=== PATIENT | female | born 1965 | race Caucasian/White ===

== ENCOUNTER 2019-07-26 07:45 | Emergency (ER) | payer BC ==
[2019-07-26 07:57] VITALS: TEMP 98.1
[2019-07-26 08:29] VITALS: RESP 18
--- NOTE | 2019-07-26 08:33 | ED ---
General Adult HPI - General Chief complaint: Nausea/Vomiting/Diarrhea Stated complaint: POSSIBLE FLU Time Seen by Provider: 07/26/19 07:55 Source: patient, RN notes reviewed, old records reviewed Mode of arrival: ambulatory Limitations: no limitations - History of Present Illness Initial comments: This is a 54-year-old female who presents emergency Department stating that last night while at work she started having body aches a dry cough and felt as though she had a fever though she never took her temperature. Patient states she is not short of breath she is not having chest pain. Patient denies any back pain. Patient denies abdominal pain. Patient states she did have one episode of diarrhea. Patient denies any conjunctivitis. Patient denies any vomiting. Patient denies any swelling to her legs or calf tenderness. - Related Data Allergies Allergy/AdvReac Type Severity Reaction Status Date / Time Penicillins Allergy Rash/Hives Verified 07/26/19 07:57 Review of Systems ROS Statement: Those systems with pertinent positive or pertinent negative responses have been documented in the HPI. ROS Other: All systems not noted in ROS Statement are negative. Past Medical History Past Medical History: No Reported History History of Any Multi-Drug Resistant Organisms: None Reported Past Surgical History: No Surgical Hx Reported Past Psychological History: No Psychological Hx Reported Smoking Status: Current every day smoker Past Alcohol Use History: Occasional Past Drug Use History: None Reported General Exam - General Exam Comments Initial Comments: GENERAL: Patient is well-developed and well-nourished. Patient is nontoxic and well- hydrated and is in mild distress. ENT: Neck is soft and supple. No significant lymphadenopathy is noted. Oropharynx is clear. Moist mucous membranes. Neck has full range of motion without eliciting any pain. EYES: The sclera were anicteric and conjunctiva were pink and moist. Extraocular movements were intact and pupils were equal round and reactive to light. Eyelids were unremarkable. PULMONARY: Unlabored respirations. Good breath sounds bilaterally. No audible rales rhonchi or wheezing was noted. CARDIOVASCULAR: There is a regular rate and rhythm without any murmurs gallops or rubs. ABDOMEN: Soft and nontender with normal bowel sounds. SKIN: Skin is clear with no lesions or rashes and otherwise unremarkable. NEUROLOGIC: Patient is alert and oriented x3. Cranial nerves II through XII are grossly intact. Motor and sensory are also intact. Normal speech, volume and content. Symmetrical smile. MUSCULOSKELETAL: Normal extremities with adequate strength and full range of motion. No lower extremity swelling or edema. No calf tenderness. LYMPHATICS: No significant lymphadenopathy is noted PSYCHIATRIC: Normal psychiatric evaluation. Limitations: no limitations Course Vital Signs 07/26/19 07/26/19 07:53 08:26 Temperature 98.1 F Pulse Rate 119 H 89 Respiratory 20 18 Rate Blood Pressure 153/89 140/86 O2 Sat by Pulse 100 97 Oximetry Medical Decision Making - Medical Decision Making Chest x-ray shows no acute abnormality. Disposition Clinical Impression: Upper respiratory infection Disposition: HOME SELF-CARE Instructions (If sedation given, give patient instructions): Upper Respiratory Infection (ED) Additional Instructions: Patient should self quarantined for 2 weeks because of possible COVID infection. Patient should return to the emergency department if symptoms worsen or she has any new symptoms or she short of breath. Is patient prescribed a controlled substance at d/c from ED?: No Referrals: Murphy Starks MD [Primary Care Provider] - 1-2 days Time of Disposition: 08:44
--- NOTE | 2019-07-26 08:35 | XR ---
EXAMINATION TYPE: XR chest 2V DATE OF EXAM: 07/26/2019 HISTORY: Difficulty breathing . REFERENCE: NONE. FINDINGS: The lungs are clear. Pleural space are clear. The heart is not enlarged. IMPRESSION: NORMAL CHEST.
[2019-07-26 08:54] VITALS: BP 129/62; PULSE 72
== END 2019-07-26 08:53 | disposition home or self-care (01) ==
LOC: EC 07:45
DX: J06.9 Acute upper respiratory infection, unspecified (principal); R19.7 Diarrhea, unspecified; F17.200 Nicotine dependence, unspecified, uncomplicated; Z88.0 Allergy status to penicillin
CPT/HCPCS: 71046; 99284

== ENCOUNTER 2019-08-18 17:07 | Emergency (ER) | payer BC ==
[2019-08-18 17:22] VITALS: RESP 18
--- NOTE | 2019-08-18 17:31 | ED ---
Recheck HPI - General Chief Complaint: Recheck/Abnormal Lab/Rx Stated Complaint: flu like symptoms Time Seen by Provider: 08/18/19 17:25 Source: patient, RN notes reviewed, old records reviewed Mode of arrival: ambulatory Limitations: no limitations - History of Present Illness Initial Comments: This is a 54-year-old female DF for evaluation of SOB for evaluation regards to shortness of breath weakness fatigue anxiety of having exposure and possible C OVID symptoms patient states she was seen in ER weak earlier this week her month for similar complaints. Patient's concerned that she was diagnosed spoke with family doctor still in with older she was having just anxiety still has concern over illness. Patient has no chest pain no fevers. Just feels weak lethargic and bodyaches and pains MD Complaint: other (Patient believes she has COVID has been exposed) -: week(s) Returns Today for: persistent/worsening pain related to initial visit, other (not feeling well) Symptoms Since Prior Visit: worsening pain, fever Context: other (patient not improving) Associated Symptoms: fever, chills, shortness of breath, malaise - Related Data Allergies Allergy/AdvReac Type Severity Reaction Status Date / Time Penicillins Allergy Rash/Hives Verified 07/26/19 07:57 Review of Systems ROS Statement: Those systems with pertinent positive or pertinent negative responses have been documented in the HPI. ROS Other: All systems not noted in ROS Statement are negative. Past Medical History Past Medical History: No Reported History History of Any Multi-Drug Resistant Organisms: None Reported Past Surgical History: No Surgical Hx Reported Past Psychological History: No Psychological Hx Reported Smoking Status: Former smoker Past Alcohol Use History: Occasional Past Drug Use History: None Reported General Exam Limitations: no limitations General appearance: alert, in no apparent distress, anxious Head exam: Present: atraumatic, normocephalic, normal inspection Eye exam: Present: normal appearance, PERRL, EOMI. Absent: scleral icterus, conjunctival injection, periorbital swelling ENT exam: Present: normal exam, mucous membranes moist Neck exam: Present: normal inspection. Absent: tenderness, meningismus, lymphadenopathy Respiratory exam: Present: normal lung sounds bilaterally. Absent: respiratory distress, wheezes, rales, rhonchi, stridor Cardiovascular Exam: Present: regular rate, normal rhythm, normal heart sounds. Absent: systolic murmur, diastolic murmur, rubs, gallop, clicks GI/Abdominal exam: Present: soft, normal bowel sounds. Absent: distended, tenderness, guarding, rebound, rigid Extremities exam: Present: normal inspection, full ROM, normal capillary refill. Absent: tenderness, pedal edema, joint swelling, calf tenderness Back exam: Present: normal inspection Neurological exam: Present: alert, oriented X3, CN II-XII intact Psychiatric exam: Present: normal affect, normal mood Skin exam: Present: warm, dry, intact, normal color. Absent: rash Course Vital Signs 08/18/19 08/18/19 08/18/19 17:18 17:30 19:17 Temperature 98.2 F 98.6 F Pulse Rate 107 H 97 Respiratory 18 20 18 Rate Blood Pressure 154/72 150/70 O2 Sat by Pulse 98 Oximetry 08/18/19 20:21 Temperature 98.7 F Pulse Rate 87 Respiratory 18 Rate Blood Pressure 148/78 O2 Sat by Pulse 97 Oximetry - Reevaluation(s) Reevaluation #1: Medical record is reviewed Pulse ox normal on room air Patient is able ambulate without shortness of breath Patient informed of results and questions are answered Patient is no new complaints okay for discharge Medical Decision Making - Medical Decision Making 54 female to the ER not feeling well. Patient was concern for Kovic testing. Patient tests are normal here in the ER feeling well okay for discharge home - Lab Data Result diagrams: 08/18/19 17:50 08/18/19 17:50 Lab Results 08/18/19 08/18/19 08/18/19 Range/Units 17:50 17:50 17:59 WBC 10.0 (3.8-10.6) k/uL RBC 4.49 (3.80-5.40) m/uL Hgb 14.5 (11.4-16.0) gm/dL Hct 43.1 (34.0-46.0) % MCV 96.2 (80.0-100.0) fL MCH 32.4 (25.0-35.0) pg MCHC 33.7 (31.0-37.0) g/dL RDW 11.6 (11.5-15.5) % Plt Count 305 (150-450) k/uL Neutrophils % 56 % Lymphocytes % 35 % Monocytes % 5 % Eosinophils % 2 % Basophils % 1 % Neutrophils # 5.6 (1.3-7.7) k/uL Lymphocytes # 3.5 (1.0-4.8) k/uL Monocytes # 0.5 (0-1.0) k/uL Eosinophils # 0.2 (0-0.7) k/uL Basophils # 0.1 (0-0.2) k/uL Sodium 135 L (137-145) mmol/L Potassium 4.1 (3.5-5.1) mmol/L Chloride 97 L (98-107) mmol/L Carbon Dioxide 30 (22-30) mmol/L Anion Gap 8 mmol/L BUN 13 (7-17) mg/dL Creatinine 0.65 (0.52-1.04) mg/dL Est GFR (CKD-EPI)AfAm >90 (>60 ml/min/1.73 sqM) Est GFR (CKD-EPI)NonAf >90 (>60 ml/min/1.73 sqM) Glucose 105 H (74-99) mg/dL Calcium 9.8 (8.4-10.2) mg/dL Magnesium 2.0 (1.6-2.3) mg/dL Total Bilirubin 0.3 (0.2-1.3) mg/dL AST 26 (14-36) U/L ALT 18 (4-34) U/L Alkaline Phosphatase 79 (38-126) U/L C-Reactive Protein <5.0 (<10.0) mg/L Total Protein 8.3 H (6.3-8.2) g/dL Albumin 4.9 (3.5-5.0) g/dL Coronavirus (PCR) Not Detected (Not Detectd) Influenza Type A RNA Not Detected (Not Detectd) Influenza Type B (PCR) Not Detected (Not Detectd) - EKG Data -: EKG Interpreted by Me (EKG shows sinus rhythm of 95, MT 122, QRS 8 8, QTC 442) Disposition Clinical Impression: Viral illness Disposition: HOME SELF-CARE Condition: Good Instructions (If sedation given, give patient instructions): Viral Syndrome (ED) Is patient prescribed a controlled substance at d/c from ED?: No Referrals: Murphy Starks MD [Primary Care Provider] - 1-2 days
[2019-08-18 18:03] LABS: Basophils # (A) 0.1 k/uL (0-0.2); Basophils % (A) 1 %; Eosinophils # (A) 0.2 k/uL (0-0.7); Eosinophils % (A) 2 %; HCT 43.1 % (34.0-46.0); HGB 14.5 gm/dL (11.4-16.0); Lymphocytes # (A) 3.5 k/uL (1.0-4.8); Lymphocytes % (A) 35 %; MCH 32.4 pg (25.0-35.0); MCHC 33.7 g/dL (31.0-37.0); MCV 96.2 fL (80.0-100.0); Mean Platelet Volume 7.7; Monocytes # (A) 0.5 k/uL (0-1.0); Monocytes % (A) 5 %; Neutrophils # (A) 5.6 k/uL (1.3-7.7); Neutrophils % (A) 56 %; Platelet Count 305 k/uL (150-450); RBC 4.49 m/uL (3.80-5.40); RDW 11.6 % (11.5-15.5)
--- NOTE | 2019-08-18 18:12 | XR ---
EXAMINATION TYPE: XR chest 1V portable DATE OF EXAM: 08/18/2019 COMPARISON: Chest x-ray July 26, 2019. HISTORY: Body aches cough and shortness of breath. Suspected Covid-19 pneumonia. TECHNIQUE: Single AP portable frontal upright view of the chest is obtained. FINDINGS: There is no focal air space opacity, pleural effusion, or pneumothorax seen. The cardiac silhouette size is within normal limits. The osseous structures are intact. IMPRESSION: No suspicious new acute infiltrate. No significant change from prior.
[2019-08-18 18:14] LABS: ALT 18 U/L (4-34); AST 26 U/L (14-36); African American GFR (CKD) >90 (>60 ml/min/1.73 sqM); Albumin 4.9 g/dL (3.5-5.0); Alkaline Phosphatase 79 U/L (38-126); Anion Gap 8 mmol/L; Blood Urea Nitrogen 13 mg/dL (7-17); C Reactive Protein <5.0 mg/L (<10.0); Calcium 9.8 mg/dL (8.4-10.2); Carbon Dioxide 30 mmol/L (22-30); Chloride 97 mmol/L (98-107); Glucose 105 mg/dL (74-99); Non-African American GFR(CKD) >90 (>60 ml/min/1.73 sqM); Potassium 4.1 mmol/L (3.5-5.1); Sodium 135 mmol/L (137-145); Total Bilirubin 0.3 mg/dL (0.2-1.3); Total Protein 8.3 g/dL (6.3-8.2)
[2019-08-18] MEDS ORDERED: KETOROLAC 30 MG/ML 1 ML VIAL IVP STA (18:41)
[2019-08-18] MEDS ORDERED: DEXAMETHASONE SOD PHOSPHATE 10 MG/ML 1 ML VIAL IV STA (18:41)
[2019-08-18] MEDS ORDERED: ONDANSETRON ODT 4 MG TAB PO STA (19:15)
[2019-08-18 20:22] VITALS: BP 148/78; PULSE 87; TEMP 98.7
== END 2019-08-18 20:22 | disposition home or self-care (01) ==
LOC: EC 17:07
DX: B34.9 Viral infection, unspecified (principal); Z20.828 Contact with and (suspected) exposure to other viral communicable diseases; Z87.891 Personal history of nicotine dependence; Z88.0 Allergy status to penicillin
CPT/HCPCS: 36415; 93005; 80053; 83735; 85025; 86140; 87040; 87502; 87635; 71045; 99285; 96374; 96375; J1100; J1885

== ENCOUNTER → 2022-12-11 | Outpatient (CLI) | payer BC ==
--- NOTE | 2022-12-11 10:36 | XR ---
EXAMINATION TYPE: XR cervical spine limited DATE OF EXAM: 12/11/2022 COMPARISON: NONE HISTORY: Pain TECHNIQUE: Three views are submitted. FINDINGS: The odontoid is intact. There are no compression deformities. The prevertebral soft tissue structur es are within normal limits. There is loss of the normal cervical lordosis with straightening of the cervical spine. Mild degenerative disc disease C4-C5 and moderate changes at C5-6 and 6 days C7. Lar ge anterior spurring at C5. IMPRESSION: 1. Multilevel degenerative disc disease with moderate degenerative disc disease C5-6 and C6-C7. Recom mend MRI.
--- NOTE | 2022-12-11 10:41 | XR ---
EXAMINATION TYPE: XR shoulder limited LT DATE OF EXAM: 12/11/2022 COMPARISON: NONE HISTORY: Pain TECHNIQUE: Two views are submitted. FINDINGS: The osseous structures are intact. There is no acute fracture or dislocation. Moderate to severe AC joint arthropathy. IMPRESSION: 1. AC joint arthropathy correlate for impingement..
--- NOTE | 2022-12-11 10:41 | XR ---
EXAMINATION TYPE: XR thoracic spine 2V DATE OF EXAM: 12/11/2022 COMPARISON: NONE HISTORY: Pain TECHNIQUE: 3 views submitted FINDINGS: Alignment is anatomic. There is no compression deformities. Hypertrophic and degenerative changes of the spine. Most marked involving the lower lumbar spine. Diffuse osteopenia. IMPRESSION: 1. Mild multilevel hypertrophic and degenerative disc disease. 2. Diffuse osteopenia.
== END | disposition home or self-care (01) ==
LOC: RADXRMAIN 09:26
PROVIDERS: ATTEND Internal Medicine
DX: M50.321 Other cervical disc degeneration at C4-C5 level (principal); M19.012 Primary osteoarthritis, left shoulder; M51.34 Other intervertebral disc degeneration, thoracic region; M85.88 Other specified disorders of bone density and structure, other site
CPT/HCPCS: 72040; 72070